=== PATIENT | male | born 1945 | race Caucasian/White ===

== ENCOUNTER 2016-11-12 15:37 | Emergency (ER) | payer MEDICARE, OTHER ==
[~2016-11-12] VITALS: Ht 175.3 cm; Wt 72.7 kg
[~2016-11-12 15:37] MED LIST: ALBU2.5V4 INHALATION; ALBU2.5V4 NEB; ALBU8.5H2 INHALATION; AMIO200T PO; AZIT250T4 PO; BECL8.7A5 INHALATION; BENZ-12 PO; ENAL20TA PO; FURO-128 PO; IPRA3AMP NEB; METO50TA3 PO; PRE10 PO; PRE20 PO; PRED-508 PO; RIVA10TA PO; ZIT250 PO; [UNRECOGNIZED DRUG - CODE] MC
[2016-11-12 15:41] VITALS: BP 138/75; PULSE 56; RESP 16; O2SAT 95
--- NOTE | 2016-11-12 15:55 | ED.REPORT ---
HPI-Extremity Problem Upper Date of Service November 12, 2016 ED Provider: Manjinder Jaffe MD Patient is a 71 year old male with a history of CHF and hypertension who presents to the ED due to a hand abrasion. The patient reports that he was using a drill that has a metal brush and cut himself. There is not currently any active bleeding from the multiple abrasion. He states he was unsure of his tetanus status and decided to come to the ED. Nursing Notes Stated Complaint: CUT ON HAND Chief Complaint: Laceration Nursing Notes Reviewed: Yes Allergies: Coded Allergies: codeine (Verified Adverse Reaction, Intermediate, Restlessness, Vomiting, 06/18/16) Scheduled Albuterol HFA (Proair HFA) 8.5 Gm Hfa.aer.ad 2 PUFFS INHALATION Q4H Amiodarone (Amiodarone) 200 Mg Tablet 200 MG PO DAILY Azithromycin (Zithromax (Z-Makrel)) 250 Mg Tablet 250 MG PO DIRECTED Take two tablets by mouth on day 1, then take one tablet daily on days 2 through 5. Azithromycin (Zithromax) 250 Mg Tablet 250 MG PO DAILY Beclomethasone Dipropionate (Qvar) 8.7 Gm Aer.w.adap 2 PUFF INHALATION BID Enalapril Maleate (Enalapril Maleate) 20 Mg Tablet 20 MG PO DAILY Furosemide (Lasix) 40 Mg Tablet 40 MG PO DAILY Ipratropium/Albuterol Sulfate (Iprat-Albut 0.5-3(2.5) mg/3 mL Inhalant Soln) 3 Ml Ampul.neb 3 ML NEB BID Metoprolol Tartrate (Metoprolol Tartrate) 50 Mg Tablet 50 MG PO TID Prednisone (Deltasone) 20 Mg Tablet 40 MG PO DAILY Prednisone (PredniSONE) 10 Mg Tablet 10 MG PO DIRECTED 6 on day 1, then 5 on day 2, then 4 on day 3, then 3 on day 4, then 2 on day 5, then 1 on day 6 Prednisone (PredniSONE) 20 Mg Tablet 0 PO DAILY 60mg daily for 4 days, then 50mg daily for 4 days, then 40mg daily for 4 days , then 30mg daily for 4 days, then 20mg daily for 4 days, then 10mg daily for 4 days Prednisone (PredniSONE) 20 Mg Tablet 40 MG PO DAILY Prednisone (PredniSONE) 20 Mg Tablet 40 MG PO DAILY Rivaroxaban (Xarelto) 10 Mg Tablet 20 MG PO DAILY Scheduled PRN Albuterol Neb Soln (Albuterol Neb Soln) 2.5 Mg/3 Ml Vial.neb 2.5 MG NEB Q2H PRN PRN For Shortness of Breath Albuterol Neb Soln (Albuterol Neb Soln) 2.5 Mg/3 Ml Vial.neb 2.5 MG INHALATION Q4H PRN PRN For Shortness of Breath Benzonatate (Tessalon Perle) 100 Mg Capsule 200 MG PO TID PRN PRN For Cough General Time Seen by MD: 15:53 Chief Complaint Hand Injury left Hx Obtained From: Patient Arrived By: Walk-in Onset Occurred: Just prior to arrival Severity: Current: No pain currently Immunizations: Unknown Recent Healthcare: No recent hospitalization, Recent doctor visit Similar Sx Previous: No Past Medical History Past Medical History Notes: Stabber: Dr. Huddleston Past Medical History 1. Congestive heart failure (improved). 2. Hypertrophic cardiomyopathy with profound LV dysfunction with LV ejection fraction 30%-35% with underlying CARLOS ENRIQUE and severe mitral regurgitation, severe pulmonary hypertension. 3. Nonsustained ventricular tachycardia, status post [employer] dual-chamber automatic implanted cardioverter defibrillator insertion by Dr. Villanueva on July 06, 2012. 4. Status post left heart catheterization which did not reveal any significant coronary artery disease. 5. History of gastroesophageal reflux disease. 6. Renal insufficiency. 7. Paroxysmal atrial fibrillation 8. Acute hypoxemic respiratory failure requiring intubation and mechanical ventilation status post extubation 09/01/15. 9. Hx of sepsis Past Surgical History The patient has had previous bilateral inguinal hernia repairs. Cardiac cath negative for occlusive disease Pacemaker/defibrillator Reports: Pacemaker insertion Family History noncontributory Smoking History Never Smoker Social History Alcohol Use: Denies alcohol use Drug Use: Denies drug use Other Social History: Good social support, , Local resident Ambulatory Status Independent Review of Systems Constitutional: Denies: Fever Musculoskeletal: Reports: Extremity pain, Denies: Extremity swelling Neurologic: Denies: Numbness, Weakness Complete sys rev & neg: except as marked. Respiratory: Denies: Non-productive cough, Shortness of breath Physical Exam Initial Vital Signs Vital Signs (First) Date Time Temp Pulse Resp B/P Pulse Ox O2 Delivery O2 Flow Rate FiO2 11/12/16 15:41 36.8 56 16 138/75 95 5/23/17 16:20 Room Air Initial VS: Reviewed General/Constitutional: Awake, Alert, No acute distress Respiratory / Chest: Atraumatic, No respiratory distress Wrist / Hand: Neurologic intact, Vascular intact superficial abrasion about the dorsum of the left hand, radial aspect about 6cm no deep laceration Skin: No rash, Warm, Dry Neurologic: Oriented X3, Speech NL, No motor deficits, No sensory deficits Head / Eyes: Atraumatic, Normocephalic, PERRL, EOMI Lower Extremity / Pelvis / MS: Atraumatic, Full range of motion Psychiatric: Affect NL, Mood NL Re-Eval/Medical Decision Med Decision/Clinical Course Patient is a 71 year old male with a history of CHF and hypertension who presents to the ED due to a hand abrasion. The patient reports that he was using a drill that has a metal brush and cut himself. There is not currently any active bleeding from the multiple abrasion. He states he was unsure of his tetanus status and decided to come to the ED. in the emergency department the patient is afebrile stable vital signs and examination as above. He has superficial abrasions overlying his hand. Wounds were cleaned and dressed with bacitracin and sterile gauze. His tetanus status was updated. No additional injuries. Patient appropriate for discharge. Prior to discharge follow-up and return precautions were reviewed in detail with the patient who verbalized understanding and agreement with the plan. The patient was discharged in stable condition. Re-Evaluation/Progress : Time of Eval: 15:53 Re-Evaluation/Progress Note: Discussed plan for Tetanus update and discharge during initial interview. The patient understands and agrees to the plan for discharge. All questions were addressed Counseled Regarding: Diagnosis, Need for follow-up, When/why to return to ED Discharge & Departure Impression: Primary Impression: Abrasion of hand Encounter type: initial encounter Laterality: left Qualified Code: S60.512A - Abrasion of left hand, initial encounter Disposition: Home Discharge Condition All VS Reviewed: Yes Condition: Stable Additional Instructions: Thank you for seeking care at the emergency room. You were seen for an abrasion to your hand. We updated your tetanus and applied sterile dressings. Please keep the area clean and covered with antibiotic ointment and gauze. You should follow-up with your primary doctor in the next week. You should return to the ED immediately if you develop redness, swelling, warmth , increasing pain, vomiting, cough, shortness of breath, chest pain, lightheadedness, weakness or any other concerning signs or symptoms. Thank you for letting us partake in your care today. Referrals: Richard Cortes MD (PCP) Scribe Attestation Portions of this note were transcribed by Meka Alas. I, Dr. Jaffe personally performed the history, physical exam and medical decision-making; I reviewed and confirmed the accuracy of the information in the transcribed note. Signed by: Rebecca Ramirez, 11/12/16 and 1622 copies to: Richard Cortes MD, Beck O MD November 12, 2016 15:55 Vandana Alas November 12, 2016 16:23
[2016-11-12] MEDS ORDERED: TdaP Vaccine 0.5 mL Inj IM ONE (16:00)
[2016-11-12 16:20] VITALS: BP 130/75; PULSE 56; O2SAT 99
== END 2016-11-12 16:21 | disposition home or self-care (01) ==
LOC: SED 15:37
DX: S60.512A Abrasion of left hand, initial encounter (principal); W29.8XXA Contact with other powered hand tools and household machinery, initial encounter; Y93.89 Activity, other specified; Y92.89 Other specified places as the place of occurrence of the external cause; Y99.8 Other external cause status; I11.0 Hypertensive heart disease with heart failure; I50.9 Heart failure, unspecified; I42.2 Other hypertrophic cardiomyopathy; I48.0 Paroxysmal atrial fibrillation; Z23 Encounter for immunization; Z95.5 Presence of coronary angioplasty implant and graft; Z95.810 Presence of automatic (implantable) cardiac defibrillator; Z88.5 Allergy status to narcotic agent